=== PATIENT | male | born 1960 | race Caucasian/White ===

== ENCOUNTER 2016-07-03 06:44 | Inpatient (IN) | payer OTHER ==
[~2016-07-03] VITALS: Ht 170.2 cm; Wt 90.1 kg
[2016-07-03] VITALS (9 sets, daily range): BP systolic 109–151; BP diastolic 61–77
[2016-07-03 07:38] LABS: EOSINOPHIL (%) 0.1 % (0-5); HEMATOCRIT 41.6 % (38.0-50.0); IMMATURE GRANULOCYTE (%) 0.2 % (0.0-0.7); IMMATURE GRANULOCYTE COUNT 0.4 K/uL; LYMPHOCYTE COUNT 1.2 K/uL (1.0-2.8); MCH 29.9 PG (29.0-34.0); MCHC 33.9 G/DL (30.0-36.0); MCV 88.3 FL (86-99); MEAN PLAT.VOLUME 11.2 uM^3 (9.0-12.4); MONOCYTE (%) 9.1 % (3-12); MONOCYTE COUNT 1.5 K/uL (0-0.8); NEUTROPHIL (%) 83.3 % (45-76); NEUTROPHIL COUNT 13.5 K/uL (1.8-6.4); PLATELET COUNT 240 K/uL (156-360); RBC DIS.WIDTH-CV 12.8 % (11.8-14.6); RED BLOOD COUNT 4.71 M/uL (4.00-5.50); WHITE BLOOD COUNT 16.2 K/uL (4.1-10.2)
[2016-07-03 07:59] LABS: ANION GAP 9 MEQ/L (2-14); CHLORIDE 105 MEQ/L (99-109); POTASSIUM 3.6 MEQ/L (3.7-5.4); SAMPLE HEMOLYSIS CHECK 0; SAMPLE ICTERIC CHECK 0; SAMPLE LIPEMIA CHECK 0; SODIUM 139 MEQ/L (136-147); TOTAL BILIRUBIN 1.2 MG/DL (0.0-1.0)
[2016-07-03 08:01] LABS: ADD MIUA? YES; BILIRUBIN NEGATIVE; BLOOD NEGATIVE; COLOR AMBER ((YELLOW)); GLUCOSE (STRIP) NEGATIVE; KETONES NEGATIVE; LEUKOCYTES NEGATIVE; NITRITE NEGATIVE; PROTEIN (STRIP) 100; SPECIFIC GRAVITY 1.025 (1.000-1.030)
[2016-07-03 08:04] LABS: BACTERIA RARE /HPF; EPITHELIAL CELLS RARE /HPF; MUCUS 2+ /LPF; RED BLOOD CELLS 0-5 /HPF (0-5)
[2016-07-03 08:05] LABS: ALKALINE PHOSPHATASE 44 IU/L (3-129); GFR ESTIMATE (CALCULATED) > 59 mL/min/; GLUCOSE 133 mg/dL (70-99); UREA NITROGEN (BUN) 12 mg/dL (9-23)
[2016-07-04 03:51] VITALS: BP 129/69
[2016-07-04 07:07] VITALS: BP 115/61
[2016-07-04 07:22] LABS: HEMATOCRIT 33.3 % (38.0-50.0); MCH 30.3 PG (29.0-34.0); MCHC 33.6 G/DL (30.0-36.0); MEAN PLAT.VOLUME 11.6 uM^3 (9.0-12.4); PLATELET COUNT 192 K/uL (156-360); RBC DIS.WIDTH-CV 12.9 % (11.8-14.6); RBC DIS.WIDTH-SD 42.2 % (39-53)
[2016-07-04 07:31] LABS: WHITE BLOOD COUNT 8.9 K/uL (4.1-10.2)
[2016-07-04 11:40] VITALS: BP 120/57
[2016-07-04 15:20] VITALS: BP 135/65
[2016-07-04 19:00] VITALS: BP 111/57
[2016-07-05] VITALS: BP 117/62
[2016-07-05 04:00] VITALS: BP 136/73
[2016-07-05 07:59] VITALS: BP 133/69
[2016-07-05] MEDS ORDERED: AMLODIPINE-BEN1 EACH PO (11:52)
[2016-07-05] MEDS ORDERED: FENOFIBRATE145 M1 PO (11:53)
[2016-07-05] MEDS ORDERED: ATORVASTATIN CA20 MG PO (11:53)
[2016-07-05] MEDS ORDERED: ERGOCALCIF50000 UNIT PO (11:53)
[2016-07-05] MEDS ORDERED: LO-DOSE ASPIRIN81 M1 PO (11:54)
[2016-07-05] MEDS ORDERED: FISH OIL 1,0001 EAC7 PO (11:55)
[2016-07-05 16:02] VITALS: BP 130/63
[2016-07-05 23:09] VITALS: BP 158/71
[2016-07-06 07:50] VITALS: BP 132/72
[2016-07-06 16:00] VITALS: BP 134/71
[2016-07-06] MEDS ORDERED: AUGMENTIN875 MG PO (16:00)
[2016-07-06] MEDS ORDERED: OXYCODONE HCL5 MG PO (16:00)
== END 2016-07-06 19:40 | disposition home or self-care (01) | DRG 340 ==
LOC: EME 06:44 → SDC 09:50 → 2SOUTH 11:36 → 2EASTP 11:36
PROVIDERS: Emergency Medicine; Surgery
PROC: 0DTJ4ZZ Resection of Appendix, Percutaneous Endoscopic Approach (ICD-10-PCS; principal; 2016-07-03)
DX: K35.2 Acute appendicitis with generalized peritonitis (principal); I10 Essential (primary) hypertension; E78.00 Pure hypercholesterolemia, unspecified
CPT/HCPCS: 74177; 80053; 81003; 85025; 85027; 88304; 94799; 99281; 99285; J0330; J1170; J1335; J1650; J1885; J2405; J2543; J2765; J3010; J7030; J7050; J7120